=== PATIENT | male | born 1960 | race Caucasian/White ===

== ENCOUNTER 2023-04-02 14:33 | Inpatient (IN) ==
[2023-04-02] MEDS ORDERED: Adenosine 3 MG/ML 2 ml VIAL (6 mg) ONE ×2 (14:48→14:51)
[2023-04-02] MEDS ORDERED: Midazolam 2 mg/2 ml VIAL 1 mg/ml 2 ml VIAL (2 mg) ONE (14:49)
[2023-04-02 14:58] LABS: ABS Eosinophils 0.1 10^3/uL (0.0-0.5); ABS Monocytes 0.7 10^3/uL (0.0-1.1); ABS Neutrophils 4.7 10^3/uL (1.5-7.6); ABS Nucleated RBC 0.01 10^3/ul; Eosinophil % 1.4 %; Hematocrit 52.1 % (38-53); Hemoglobin 17.5 g/dL (13.2-16.3); Lymphocyte % 26.3 %; Mean Corpuscular Hemoglobin 29.1 pg (27-33); Mean Corpuscular Hgb Conc 33.6 g/dL (31-36); Mean Corpuscular Volume 86.7 fL (80-97); Mean Platelet Volume 7.3 fL (7.5-11.2); Nucleated Red Blood Cells % 0.2 %/100WBC (0.0-0.8); Platelet Count 213 10^3/uL (150-450); Red Blood Count 6.01 10^6/uL (4.06-5.63); Red Cell Distribution Width 16.3 % (12-17); White Blood Count 7.6 10^3/uL (3.6-10.2)
[2023-04-02] MEDS ORDERED: Amiodarone 360 MG IVPREMIX 360 MG/200 ML BAG IV ONE (15:00)
[2023-04-02] MEDS ORDERED: Amiodarone IV 150 mg/3 ml VIAL ONE (15:00)
[2023-04-02 15:10] LABS: INR 0.93 (0.83-1.13)
[2023-04-02 15:18] LABS: Albumin 4.6 g/dL (3.2-5.2); Albumin/Globulin Ratio 1.7 (1-3); Calcium 10.1 mg/dL (8.6-10.3); Creatinine, Serum 1.34 mg/dL (0.67-1.17); Globulin 2.7 g/dL (2-4); Potassium 4.2 mmol/L (3.5-5.0); Total Bilirubin 0.5 mg/dL (0.2-1.0); Total Protein 7.3 g/dL (6.4-8.9); eGFR CKD-EPI 60.6 (>60)
[2023-04-02 15:35] LABS: Magnesium 1.9 mg/dL (1.9-2.7); Phosphorus 3.4 mg/dL (2.5-5.0)
[2023-04-02 16:05] LABS: TSH Ultra Thyroid Stim Horm 2.1 mcIU/mL (0.34-5.60)
[2023-04-02 16:27] LABS: High Sensitivity Troponin 1 Hr 386 pg/mL (<20)
[2023-04-02] MEDS ORDERED: Amiodarone 150 mg IVPREMIX 150 MG/100 ML BAG IV ONE (16:32)
[2023-04-02] MEDS ORDERED: .Amiodarone 24HR ONLY IV Protocol Order Note IV ONE (16:32)
[2023-04-02] MEDS ORDERED: Amiodarone 360 MG IVPREMIX 360 MG/200 ML BAG IV SCH ×2 (16:45→19:15)
[2023-04-02 17:04] LABS: HDL Cholesterol 33.5 mg/dL
[2023-04-02 17:54] LABS: Urine Benzodiazepine Screen Presumptive Positive (None Detect); Urine Cannabinoids Screen None Detected (None Detect); Urine Opiates Screen None Detected (None Detect)
[2023-04-02] MEDS ORDERED: Dextrose 50% Syringe 50 ml 25 GM/50 ML SYRINGE IV PUSH PRN (18:34)
[2023-04-02] MEDS ORDERED: Adenosine 3 MG/ML 2 ml VIAL (6 mg) IV PUSH ONE ×2 (19:14→19:29)
[2023-04-02] MEDS ORDERED: NS 0.9% 1000 ml BAG 1,000 ML IV ONE (19:14)
[2023-04-02] MEDS ORDERED: Midazolam 5 mg/5 ml VIAL 1 mg/ml 5 ml VIAL (5 mg) IV SLOW PU ONE (19:14)
[2023-04-02] MEDS ORDERED: Calcium CHLORIDE 10% SYRINGE 1 GM/10 ML IV ONE (19:14)
[2023-04-02] MEDS ORDERED: Sodium Bicarbonate 8.4% SYR 50 ml SYRINGE IV ONE (19:14)
[2023-04-02] MEDS: PTO:ICOSAPENT ETHYL 1 GM CAPSULE (NF) PO SCH ×2 (20:02→20:29)
[2023-04-02] MEDS: Heparin 5000 UNITS/ML 1 mL VIAL SUBCUT SCH (20:15)
[2023-04-02] MEDS: Amiodarone 360 MG IVPREMIX 360 MG/200 ML BAG IV SCH (22:07)
[2023-04-03 04:46] LABS: ABS Eosinophils 0.1 10^3/uL (0.0-0.5); ABS Monocytes 0.7 10^3/uL (0.0-1.1); ABS Neutrophils 5.1 10^3/uL (1.5-7.6); ABS Nucleated RBC 0.01 10^3/ul; Eosinophil % 1.1 %; Hematocrit 47.6 % (38-53); Lymphocyte % 24.9 %; Mean Corpuscular Hemoglobin 29.4 pg (27-33); Mean Corpuscular Hgb Conc 33.7 g/dL (31-36); Mean Corpuscular Volume 87.1 fL (80-97); Mean Platelet Volume 7.5 fL (7.5-11.2); Nucleated Red Blood Cells % 0.1 %/100WBC (0.0-0.8); Platelet Count 190 10^3/uL (150-450); Red Blood Count 5.46 10^6/uL (4.06-5.63); Red Cell Distribution Width 16.4 % (12-17)
[2023-04-03 05:07] LABS: ALT 20 U/L (7-52); Albumin/Globulin Ratio 1.7 (1-3); Alkaline Phosphatase 52 U/L (35-149); Anion Gap 17 mmol/L (2-16); Blood Urea Nitrogen 13 mg/dL (6-24); CO2 Carbon Dioxide 26 mmol/L (22-32); Calcium 8.5 mg/dL (8.6-10.3); Chloride 98 mmol/L (101-111); Creatinine, Serum 1.01 mg/dL (0.67-1.17); Globulin 2.4 g/dL (2-4); Glucose 140 mg/dL (70-100); Magnesium 1.9 mg/dL (1.9-2.7); Sodium 141 mmol/L (135-145); Total Bilirubin 0.5 mg/dL (0.2-1.0); Total Protein 6.4 g/dL (6.4-8.9); eGFR CKD-EPI 85.1 (>60)
[2023-04-03] MEDS: Heparin 5000 UNITS/ML 1 mL VIAL SUBCUT SCH ×3 (06:12→20:22)
[2023-04-03] MEDS: Cholecalciferol (VIT D3) 1,000 unit TAB PO SCH (08:21)
[2023-04-03] MEDS: PTO:Bictegravir/Emtricit/Tenofov 1 TABLET PO SCH (08:23)
[2023-04-03] MEDS: PTO:ICOSAPENT ETHYL 1 GM CAPSULE (NF) PO SCH ×2 (08:24→20:23)
[2023-04-03] MEDS ORDERED: Sulfur Hexaflouride MICROSPHR 25 MG VIAL ONE (09:09)
[2023-04-03] MEDS: Amiodarone 360 MG IVPREMIX 360 MG/200 ML BAG IV SCH (09:50)
[2023-04-03] MEDS: Amiodarone 400 mg TAB PO SCH (20:23)
[2023-04-04] MEDS: Heparin 5000 UNITS/ML 1 mL VIAL SUBCUT SCH ×3 (04:42→22:23)
[2023-04-04 05:15] LABS: ABS Eosinophils 0.1 10^3/uL (0.0-0.5); ABS Lymphocytes 1.9 10^3/uL (1.0-4.8); ABS Monocytes 0.8 10^3/uL (0.0-1.1); ABS Neutrophils 4.7 10^3/uL (1.5-7.6); ABS Nucleated RBC 0.02 10^3/ul; Eosinophil % 1.5 %; Hematocrit 50.8 % (38-53); Hemoglobin 17.2 g/dL (13.2-16.3); Lymphocyte % 25.2 %; Mean Corpuscular Hemoglobin 29.4 pg (27-33); Mean Corpuscular Hgb Conc 33.9 g/dL (31-36); Mean Corpuscular Volume 86.7 fL (80-97); Mean Platelet Volume 7.7 fL (7.5-11.2); Nucleated Red Blood Cells % 0.3 %/100WBC (0.0-0.8); Platelet Count 193 10^3/uL (150-450); Red Blood Count 5.86 10^6/uL (4.06-5.63); Red Cell Distribution Width 16.1 % (12-17); White Blood Count 7.5 10^3/uL (3.6-10.2)
[2023-04-04 06:07] LABS: Albumin 3.7 g/dL (3.2-5.2); Albumin/Globulin Ratio 1.5 (1-3); Calcium 8.9 mg/dL (8.6-10.3); Creatinine, Serum 1.21 mg/dL (0.67-1.17); Globulin 2.5 g/dL (2-4); Magnesium 1.8 mg/dL (1.9-2.7); Potassium 4.2 mmol/L (3.5-5.0); Total Bilirubin 0.7 mg/dL (0.2-1.0); Total Protein 6.2 g/dL (6.4-8.9); eGFR CKD-EPI 68.5 (>60)
[2023-04-04] MEDS ORDERED: Magnesium Sulfate 2 gm BAG 2 GM/50 ML BAG IVPB ONE (07:32)
[2023-04-04] MEDS: PTO:ICOSAPENT ETHYL 1 GM CAPSULE (NF) PO SCH ×2 (07:57→20:25)
[2023-04-04] MEDS: Amiodarone 400 mg TAB PO SCH ×2 (07:57→20:24)
[2023-04-04] MEDS: Cholecalciferol (VIT D3) 1,000 unit TAB PO SCH (07:57)
[2023-04-04] MEDS: PTO:Bictegravir/Emtricit/Tenofov 1 TABLET PO SCH (07:58)
[2023-04-04] MEDS ORDERED: Iohexol 350 (CONTRAST) 200 ML MDV IV ONE (12:23)
[2023-04-04] MEDS ORDERED: Heparin 2 UNITS/ML 1000 mls 2,000 ML IV ONE (12:23)
[2023-04-04] MEDS ORDERED: VERAPAMIL 2.5 MG/ML 2 ML VIAL ** 5 mg/2 ml ONE (12:23)
[2023-04-04] MEDS ORDERED: Heparin 1,000 UNIT/ML 10 ml (10,000 UNITS) CATHLAB/DIALYSIS ONE ×2 (12:23→13:43)
[2023-04-04] MEDS ORDERED: Lidocaine 1% MPF 5 ML VIAL ONE (12:23)
[2023-04-04] MEDS ORDERED: nitroGLYCERIN DRIP 25,000 MCG/250 ML BTL ONE (12:23)
[2023-04-04] MEDS ORDERED: Midazolam 5 mg/5 ml VIAL 1 mg/ml 5 ml VIAL (5 mg) ONE (12:37)
[2023-04-04] MEDS ORDERED: fentaNYL 100 mcg/2 ml 50 MCG/ML VIAL ONE (12:37)
[2023-04-04] MEDS ORDERED: NS 0.9% 1000 ml BAG 1,000 ML IV SCH (14:30)
[2023-04-04 23:34] VITALS: BP 120/61
== END 2023-04-04 23:21 | disposition short-term general hospital (02) | DRG 192 ==
LOC: ED 14:33 → EDHOLD 16:29 → ICU 17:29
PROVIDERS: ADMIT Internal Medicine; ATTEND Internal Medicine